=== PATIENT | male | born 1950 | race Caucasian/White ===

== ENCOUNTER 2022-11-09 07:38 | Outpatient (CLI) | payer OTHER | END 2022-11-09 07:40 | disposition home or self-care (01) | LOC: NUCLEAR 07:38 | DX: I42.9 Cardiomyopathy, unspecified (principal) ==

== ENCOUNTER → 2022-11-09 10:03 | Outpatient (CLI) | payer OTHER | END | disposition home or self-care (01) | LOC: LAB → EKG 10:03 → LAB 10:03 | DX: Z15.89 Genetic susceptibility to other disease (principal) ==

== ENCOUNTER → 2022-11-09 | Outpatient (CLI) | payer OTHER | END | disposition home or self-care (01) | LOC: SONOGRAMA 08:06 | DX: Z01.89 Encounter for other specified special examinations (principal) ==

== ENCOUNTER 2023-10-24 08:00 | Outpatient (CLI) | payer OTHER ==
[2023-10-24 07:49] LABS: HEMATOCRIT 46.8 % (39.0-48.0); HEMOGLOBIN 15.9 g/dL (13-16.00); MEAN CORPUSCULAR HGB CONC 34.1 g/dl (32.0-36.0); PLATELET COUNT 201 K/uL (150-450); RED BLOOD COUNT 5.31 M/uL (4.00-6.00)
[2023-10-24 08:50] LABS: BILIRUBIN TOTAL 0.97 mg/dL (0.3-1.2); CALCIUM 9.5 mg/dL (8.5-10.1); CREATININE SERUM 0.95 mg/dL (0.70-1.30); GFR 78.15; GLOBULINA 3.2 G/DL (2.4-3.5); POTASSIUM 4.74 mEq/L (3.5-5.1); TOTAL PROTEIN 7.2 gm/dL (6.4-8.2)
== END 2023-10-24 23:00 | disposition home or self-care (01) ==
LOC: LAB 08:00
PROVIDERS: ATTEND Surgery
DX: Z12.11 Encounter for screening for malignant neoplasm of colon (principal)

== ENCOUNTER → 2024-03-04 14:21 | Outpatient (CLI) | payer OTHER ==
[~2024-03-04 14:21] MED LIST: CELEBREX200MG PO; NEURONTIN300 MG PO; PERCOCET 5-3251 EACH PO; POLY119PG PO
[2024-03-04 14:38] LABS: PH,URINE 5.5 (5.0-8.0); URINE APPEARANCE Clear; URINE BILIRRUBIN Negative (NEGATIVE); URINE BLOOD Negative; URINE COLOR Yellow; URINE GLUCOSE Negative (NEGATIVE); URINE LEUKOCYTE Negative; URINE NITRATE Negative; URINE PROTEIN Negative (NEGATIVE)
[2024-03-04 14:39] LABS: URINE EPITHELIAL CELLS 2.3 uL (0.0-38.8); URINE WBC 5.5 uL (0.0-23.2)
[2024-03-04 14:40] LABS: URINE RBC 0.9 uL (0.0-20.8)
== END | disposition home or self-care (01) ==
LOC: LAB 12:22
PROVIDERS: ATTEND Urology
DX: N40.0 Benign prostatic hyperplasia without lower urinary tract symptoms (principal)

== ENCOUNTER 2024-03-04 14:30 | Outpatient (CLI) | payer OTHER | END 2024-03-04 14:34 | disposition home or self-care (01) | LOC: SONOGRAMA 14:30 | PROVIDERS: ATTEND Urology | DX: N40.0 Benign prostatic hyperplasia without lower urinary tract symptoms (principal) ==

== ENCOUNTER 2024-09-13 06:55 | Outpatient (CLI) | payer OTHER ==
[2024-09-13 08:43] LABS: CALCIUM 9.3 mg/dL (8.5-10.1); CREATININE SERUM 1.1 mg/dL (0.70-1.30); GFR 65.8; POTASSIUM 4.38 mEq/L (3.5-5.1)
[2024-09-13 08:44] LABS: PROSTATIC SPECIFIC ANTIGEN 5.41 NG/ML (0.010-4.00)
[2024-09-16 17:02] LABS: % FREE PSA 21.6 % (.); free psa 1.06 ng/mL; total psa 4.9 ng/mL (0.0-4.0)
== END 2024-09-13 06:56 | disposition home or self-care (01) ==
LOC: LAB 06:55
DX: R97.20 Elevated prostate specific antigen [PSA] (principal); Z13.228 Encounter for screening for other metabolic disorders